=== PATIENT | female | born 1985 | race Caucasian/White ===

== ENCOUNTER 2019-02-13 05:05 | Inpatient (IN) ==
[2019-02-13] MEDS ORDERED: KEFZOL 1 GM/D5W 1 GM/50 ML IVPB IV PRN (05:07)
[2019-02-13] MEDS ORDERED: BICITRA PO ONE (05:14)
[2019-02-13] MEDS ORDERED: REGLAN IV ONE (05:14)
[2019-02-13 05:59] LABS: URINE SOURCE VOIDED
[2019-02-13] MEDS: LR 1,000 ML IV SCH ×2 (05:59→06:22)
[2019-02-13 06:04] LABS: BASO# 0.04 X1000 (0.0-0.2); BASO% 0.3 % (0.0-0.8); EOS# 0.16 X1000 (0.0-0.7); EOS% 1.2 % (0.0-10.0); HEMATOCRIT 34.7 % (37.0-47.0); HEMOGLOBIN 11.3 g/dL (12.0-16.0); IMM GRAN% 0.7 % (0.0-0.5); LYMPH# 2.74 X1000 (1.2-3.4); LYMPH% 19.9 % (20.5-51.1); MCH 28.8 PG (27-31); MCHC 32.6 g/dL (33-37); MCV 88.5 FL (81-99); MONO# 1.22 X1000 (0.11-0.59); MONO% 8.9 % (1.7-9.3); MPV 11.1 FL (7.4-10.4); NEUT# 9.48 X1000 (1.4-6.5); PLT 240 X1000 (130-400); RBC 3.92 XMIL (4.2-5.4); RDW 14.2 % (11.5-14.5); WBC 13.74 X1000 (4.8-10.8)
[2019-02-13 06:28] LABS: BILIRUBIN URINE NEGATIVE (NEGATIVE); BLOOD URINE NEGATIVE (NEGATIVE); CLARITY CLEAR (CLEAR); COLOR YELLOW; GLUCOSE URINE NEGATIVE (NEGATIVE); KETONE URINE NEGATIVE (NEGATIVE); LEUKOCYTES URINE NEGATIVE (NEGATIVE); NITRITE URINE NEGATIVE (NEGATIVE); PROTEIN URINE NEGATIVE (NEGATIVE); SP GRAVITY URINE 1.005; UROBILINOGEN URINE NORMAL
--- NOTE | 2019-02-13 06:28 | HISTORY AND PHYSICAL ---
HISTORY OF PRESENT ILLNESS: The patient is a 33-year-old, white female, G2, P1, at 39 weeks gestation, with a history of prior section, who would like to have an elective repeat section. She also has expressed a desire for permanent sterilization, and will have a tubal ligation at the time of the section. Gestational course was unremarkable. Dating was confirmed by a first-trimester ultrasound. PAST MEDICAL HISTORY: Significant for heart murmur and mitral valve prolapse, but has not been treated for several years. PAST SURGICAL HISTORY: section as well as dental surgery. PAST OBSTETRICS HISTORY: G2, P1. section x1. GYNECOLOGIC HISTORY: Menarche at the age of 13. REVIEW OF SYSTEMS: All systems were reviewed and noncontributory. FAMILY HISTORY: Significant for high blood pressure, stroke, diabetes. SOCIAL HISTORY: Tobacco use: She reports that she quit. Alcohol use: None. MEDICATIONS: vitamins, iron sulfate, Zantac, Zofran, Tylenol. ALLERGIES: Wellbutrin. PHYSICAL EXAMINATION: VITAL SIGNS: Height 5 feet 1 inch, weight 184 pounds. Blood pressure 113/66, pulse of 72, respirations 18, and heart rate in the 150s. HEENT: Pupils are equal, round, reactive to light and accommodation. Extraocular movements intact. Oropharynx clear. NECK: Supple. No thyromegaly. LUNGS: Clear to auscultation. HEART: Regular rate and rhythm. ABDOMEN: Gravid, nontender. EXTREMITIES: No clubbing, cyanosis, or edema noted. NEUROLOGIC: Cranial nerves II through XII are grossly intact. Motor 5/5. DTRs 2+ bilaterally. ASSESSMENT AND PLAN: Intrauterine at 39 weeks with a history of prior section, for elective repeat section, as well as for tubal ligation. The patient was counseled about the risks of surgery, including bleeding, infection, bowel or bladder injury. The patient was also counseled about the permanency of tubal ligation, failure rate of 2 to 07/999, as well as the availability of reversible alternatives, such as intrauterine device, control pills, patches, etc. The surgery is scheduled for 02/13/2019. cc: Bernard Cooney III, MD
[2019-02-13 06:34] LABS: UR AMPHETAMINES QUAL NONE DETECTED (NONE DETECT); UR BARBITUATES QUAL NONE DETECTED (NONE DETECT); UR BENZODIAZEPIN QUAL NONE DETECTED (NONE DETECT); UR CANNABINOIDS QUAL NONE DETECTED (NONE DETECT); UR COCAINE QUAL NONE DETECTED (NONE DETECT); UR METHADONE QUAL NONE DETECTED (NONE DETECT); UR METHAMPHETAMINE QUAL NONE DETECTED (NONE DETECT); UR OPIATES QUAL NONE DETECTED (NONE DETECT); UR OXYCODONE QUAL NONE DETECTED (NONE DETECT); UR PCP QUAL NONE DETECTED (NONE DETECT); UR PROPOXYPHENE QUAL NONE DETECTED (NONE DETECT); UR TCA QUAL NONE DETECTED (NONE DETECT)
[2019-02-13] MEDS ORDERED: PITOCIN 20 UNITS/NS 20 UNITS/1,000 ML IV.SOLN IV ONE (08:13)
[2019-02-13] MEDS ORDERED: BOOSTRIX VACCINE IM ONE (08:13)
[2019-02-13] MEDS ORDERED: PHENERGAN IM PRN (08:13)
[2019-02-13] MEDS ORDERED: AMBIEN PO PRN (08:13)
[2019-02-13] MEDS ORDERED: DEMEROL PO PRN ×2 (08:13)
[2019-02-13] MEDS ORDERED: HYDROXYZINE IM PRN (08:13)
[2019-02-13] MEDS ORDERED: DEMEROL IM PRN (08:13)
[2019-02-13] MEDS ORDERED: DULCOLAX PR PRN (08:13)
[2019-02-13] MEDS ORDERED: PITOCIN IM PRN (08:13)
[2019-02-13] MEDS ORDERED: NORCO-5 PO PRN (08:13)
[2019-02-13] MEDS ORDERED: M-M-R II VACCINE SUBQ ONE (08:13)
[2019-02-13] MEDS ORDERED: PITOCIN 10 UNITS/NS 1,000 ML IV SCH (08:15)
--- NOTE | 2019-02-13 08:40 | OPERATIVE NOTE ---
PROCEDURE DATE: 02/13/2019 PREOPERATIVE DIAGNOSIS: Intrauterine 39 weeks with history of for elective repeat . The patient also desires permanent sterilization. POSTOPERATIVE DIAGNOSIS: Intrauterine 39 weeks with history of for elective repeat . The patient also desires permanent sterilization with an operative delivery of a female , 6 pounds 6 ounces, Apgars of 9 and 10 at 0719 hours on 02/13/2019. PROCEDURE PERFORMED: Repeat low-transverse section and bilateral tubal ligation. SURGEON: Bernard Cooney III, MD. TERMINAL OPERATOR: ORT. ANESTHESIA: Spinal, Dr. Collier. FINDINGS: Normal-appearing uterus, tubes, and ovaries. COMPLICATIONS: None. ESTIMATED BLOOD LOSS: 600 mL. SPECIMENS: Right and left fallopian tube segments to pathology. DRAINS: Jarquin to straight drain. COUNTS: All counts were correct x3. INDICATIONS: Patient is a 33-year-old female, G 2, P 1 at 39 weeks gestation with a history of prior . The patient will be scheduled for elective repeat . She also desires permanent sterilization, and will have bilateral tubal ligation at time of . Patient counseled about the permanency of tubal ligation, as well as the failure rate of 2 to 4 per 1000, and the availability of reversible alternatives, such as IUD, control pills, patches, etc. The patient was also counseled about the risks of surgery including bleeding, infection, bowel or bladder injury. DESCRIPTION OF PROCEDURE: The patient was taken to OR, had spinal anesthesia placed, and the placed in the supine position with a roll under right hip. She was then prepped and draped in sterile fashion with placement of a Jarquin catheter, and adequate anesthesia was noted by using Allis clamps on skin. A Pfannenstiel skin incision was made in the lower abdomen using scalpel. This was taken down sharply to the fascial layer. The small tiny was made in the rectus fascia and then the fascial incision was extended bilaterally by curved Martins scissors. Then blunt and sharp dissection of the rectus fascia superiorly and inferiorly was performed. Rectus muscle was then divided in the midline. Peritoneal layer was entered bluntly. The peritoneal incision was extended superiorly and inferiorly with care taken to avoid the bladder. At this point in time, a bladder reflection was created using Metzenbaum scissors. A bladder blade was then placed into the abdominal cavity. A transverse incision was made on lower uterine segment using scalpel. Clear fluid was noted and then with gentle fundal pressure, the head was delivered atraumatically, bulb suctioned the nose and mouth. A nuchal cord was noted x1. This was reduced easily at the time of delivery. Also, a nuchal hand was noted. The rest the body was delivered atraumatically with gentle fundal pressure. Umbilical cord was clamped twice and cut. handed to nursery nurse in attendance for delivery. Cord blood sample was obtained at this time. Placenta was then manually extracted. Uterus was exteriorized. Wet lap was placed around the uterus; dry lap was then used to curette the uterine cavity of clots and debris. Uterine incision was then closed using 0 chromic in a running, locking fashion x1. A small area of oozing was noted on the left corner and this was made hemostatic with a [id number] stitch. Attention was then turned to the fallopian tubes. The right fallopian tube was grasped with a Weston clamp. A hole was made in the mesosalpinx using electrocautery, and then this was tied using 0 plain suture. The ligated dissection was then excised using Metzenbaum scissors, and then handed off to be placed in a specimen container. Electrocautery was then used to touch the open portions of the fallopian tube and good hemostasis was noted. Attention was then turned to the left fallopian tube which was grasped near the isthmus with a Sabi clamp, and then a hole was made in the mesosalpinx. Zero plain suture was used to tie this, ligate a section of this, and then this was then removed using Metzenbaum scissors and also handed off to be placed in a specimen container. Once again, electrocautery was placed on the open ends of the fallopian tube and good hemostasis was noted. The posterior cul-de-sac was then irrigated copiously. The uterus was then replaced back into the abdominal cavity. The pericolic gutters were cleansed using moist lap sponges. The bladder reflection was inspected, as well as the incision, and good hemostasis was noted. The peritoneal layer was then closed using 2-0 chromic in a running fashion x1, and then interrupted 2-0 chromic was then used to reapproximate the rectus muscle. Fascial layer was then closed using 0 PDS in a running fashion x1. Irrigation of the subcutaneous layer was then performed, and electrocautery was used to obtain hemostasis, and 2 interrupted stitches of 3-0 chromic were used in the subcutaneous layer. The skin was then reapproximated using wyatt. Patient tolerated the procedure well, was taken to recovery room in stable condition. All counts were correct x3. cc: Bernard Cooney III, MD
[2019-02-13] MEDS ORDERED: TORADOL IV SCH (09:00)
[2019-02-13] MEDS ORDERED: PERCOCET-5 PO ONE (09:49)
[2019-02-13] MEDS: MYLICON PO SCH ×4 (09:55→20:10)
[2019-02-13] MEDS ORDERED: NARCAN INJ PRN (10:00)
[2019-02-13] MEDS ORDERED: ZOFRAN IV PRN ×2 (10:00)
[2019-02-13] MEDS ORDERED: ZOFRAN ODT PO PRN (10:00)
[2019-02-13] MEDS: BENADRYL IV PRN ×2 (10:11→22:53)
[2019-02-13] MEDS: TORADOL IV SCH ×2 (14:24→20:10)
[2019-02-13] MEDS: PERICOLACE PO SCH (20:10)
[2019-02-13] MEDS ORDERED: PERICOLACE PO SCH (21:00)
[2019-02-14] MEDS: PERCOCET-5 PO PRN ×3 (01:21→12:01)
[2019-02-14] MEDS: MYLICON PO PRN ×2 (01:28→06:12)
[2019-02-14] MEDS: ATARAX PO PRN ×5 (01:28→21:52)
[2019-02-14] MEDS: TORADOL IV SCH (02:17)
[2019-02-14 06:29] LABS: BASO# 0.02 X1000 (0.0-0.2); BASO% 0.1 % (0.0-0.8); EOS# 0.37 X1000 (0.0-0.7); EOS% 2.8 % (0.0-10.0); HEMATOCRIT 29.8 % (37.0-47.0); HEMOGLOBIN 9.4 g/dL (12.0-16.0); IMM GRAN# 0.04 X1000 (0.0-0.04); IMM GRAN% 0.3 % (0.0-0.5); LYMPH# 2.03 X1000 (1.2-3.4); LYMPH% 15.2 % (20.5-51.1); MCH 28.6 PG (27-31); MCHC 31.5 g/dL (33-37); MCV 90.6 FL (81-99); MONO# 1.08 X1000 (0.11-0.59); MONO% 8.1 % (1.7-9.3); MPV 11.1 FL (7.4-10.4); NEUT% 73.5 % (42.2-75.2); PLT 217 X1000 (130-400); RBC 3.29 XMIL (4.2-5.4); RDW 14.2 % (11.5-14.5); WBC 13.34 X1000 (4.8-10.8)
--- NOTE | 2019-02-14 07:39 | OB/GYN PROGRESS NOTE ---
Progress Note OB - . OB Progress Note: Vital Signs - 24 hr 02/13/19 08:20 02/13/19 08:25 02/13/19 08:30 Temperature 96.7 F L Pulse Rate 90 93 H 72 Respiratory Rate 20 20 20 Blood Pressure Blood Pressure [Left Calf] 120/57 131/63 133/68 O2 Sat by Pulse Oximetry 98 98 98 02/13/19 08:35 02/13/19 08:40 02/13/19 08:50 Temperature Pulse Rate 88 80 75 Respiratory Rate 20 20 20 Blood Pressure Blood Pressure [Left Calf] 136/70 146/82 161/81 O2 Sat by Pulse Oximetry 97 98 98 02/13/19 09:00 02/13/19 09:07 02/13/19 09:10 Temperature 97.7 F Pulse Rate 73 86 79 Respiratory Rate 20 20 Blood Pressure 122/84 Blood Pressure [Left Calf] 161/77 155/75 O2 Sat by Pulse Oximetry 98 96 02/13/19 09:20 02/13/19 09:35 02/13/19 09:50 Temperature Pulse Rate 65 94 H 78 Respiratory Rate 20 20 20 Blood Pressure 159/73 177/95 162/83 Blood Pressure [Left Calf] 159/73 O2 Sat by Pulse Oximetry 96 97 95 02/13/19 10:05 02/13/19 10:20 02/13/19 10:30 Temperature 98.7 F Pulse Rate 99 H 89 Respiratory Rate 20 20 20 Blood Pressure 163/80 163/80 117/60 Blood Pressure [Left Calf] O2 Sat by Pulse Oximetry 97 97 97 02/13/19 11:20 02/13/19 15:20 02/13/19 20:06 Temperature 97.3 F L 98.0 F 96.6 F L Pulse Rate 81 83 86 Respiratory Rate 20 16 20 Blood Pressure 128/61 120/79 105/57 Blood Pressure [Left Calf] O2 Sat by Pulse Oximetry 97 98 96 02/14/19 04:52 Temperature 97.5 F L Pulse Rate 71 Respiratory Rate 18 Blood Pressure 110/67 Blood Pressure [Left Calf] O2 Sat by Pulse Oximetry Laboratory Results - last 24 hr 02/14/19 05:32 WBC 13.34 H RBC 3.29 L Hgb 9.4 L D Hct 29.8 L MCV 90.6 MCH 28.6 MCHC 31.5 L RDW Std Deviation 14.2 Plt Count 217 MPV 11.1 H Immature Gran % (Auto) 0.3 Neut % (Auto) 73.5 Lymph % (Auto) 15.2 L [place] % (Auto) 8.1 Eos % (Auto) 2.8 Baso % (Auto) 0.1 Immature Gran # (Auto) 0.04 Neut # (Auto) 9.80 H Lymph # (Auto) 2.03 [place] # (Auto) 1.08 H Eos # (Auto) 0.37 Baso # (Auto) 0.02 PO1 no cx pain mgmt s/nt dressing c/d -cce lochia nl hgb 9.4 adv diet snyder out ambulate possible home tomorrow
[2019-02-14] MEDS ORDERED: LR 1,000 ML IV SCH (08:13)
[2019-02-14] MEDS: MOTRIN PO PRN ×2 (09:28→17:31)
[2019-02-14] MEDS: MYLICON PO SCH ×5 (09:42→20:50)
[2019-02-14] MEDS ORDERED: NEOSPORIN OINTMENT PACKET TOP PRN (14:59)
[2019-02-14] MEDS: NORCO-10 PO PRN ×3 (15:09→21:51)
[2019-02-14] MEDS: PERICOLACE PO SCH (20:50)
[2019-02-15] MEDS: NORCO-10 PO PRN ×6 (00:51→21:10)
[2019-02-15] MEDS: MOTRIN PO PRN ×3 (00:52→18:43)
[2019-02-15] MEDS: ATARAX PO PRN ×6 (00:52→21:10)
[2019-02-15] MEDS: MYLICON PO SCH ×4 (08:41→21:09)
[2019-02-15] MEDS: FERROUS SULFATE PO SCH (08:44)
[2019-02-15] MEDS ORDERED: MIRALAX PO ONE (14:32)
[2019-02-15] MEDS ORDERED: FLEET ENEMA PR ONE (17:20)
[2019-02-15] MEDS: PERICOLACE PO SCH (21:10)
[2019-02-15] MEDS: MYLICON PO PRN (23:23)
[2019-02-15] MEDS: MIRALAX PO SCH (23:24)
[2019-02-16] MEDS: NORCO-10 PO PRN ×3 (00:43→08:50)
[2019-02-16] MEDS: MYLICON PO PRN (04:10)
[2019-02-16] MEDS: MOTRIN PO PRN (04:10)
[2019-02-16] MEDS: ATARAX PO PRN ×2 (05:32→08:50)
[2019-02-16] MEDS: MYLICON PO SCH (08:24)
[2019-02-16] MEDS: FERROUS SULFATE PO SCH (08:24)
[2019-02-16] MEDS: MIRALAX PO SCH (08:24)
[2019-02-16] MEDS ORDERED: FLU VACCINE IM ONE (08:30)
[2019-02-16] MEDS ORDERED: PNEUMOVAX 23 IM ONE (08:30)
[2019-02-16 10:01] VITALS: BP 129/79
--- NOTE | 2019-02-16 15:21 | DISCHARGE SUMMARY ---
ADMISSION DATE: 02/13/2019 DISCHARGE DATE: 02/16/2019 ADMISSION DIAGNOSIS: A 33-year-old white female, G2, P1, at 39 weeks gestation with history of prior for elective repeat . Also, patient desires permanent sterilization. FINAL DIAGNOSIS: Same as above with operative delivery of a female infant, 6 pounds 6 ounces with Apgars of 9 and 10 at 0719 on 02/13/2019. PROCEDURES: Repeat low transverse and bilateral tubal ligation. BRIEF HISTORY: The patient is a 33-year-old white female, G2, P1, at 39 weeks gestation with a history of prior and will plan a repeat . Patient also expressed desire for permanent sterilization and will have a tubal ligation performed at the time of . Gestational course was unremarkable. Dating was confirmed by first-trimester ultrasound. PAST MEDICAL HISTORY: Significant for heart murmur, mitral valve prolapse, but has not been treated for several years. PAST SURGICAL HISTORY: as well as dental surgery. PAST OB HISTORY: , x1. MANUFACTURING ENGINEERING MANAGER HISTORY: Menarche at age 13. REVIEW OF SYSTEMS: All systems were reviewed and noncontributory. FAMILY HISTORY: Significant for high blood pressure, stroke, and diabetes. SOCIAL HISTORY: Tobacco use, she reports that she quit. Alcohol use, none. MEDICATIONS: vitamins, iron sulfate, Zantac, Zofran, and Tylenol. ALLERGIES: Wellbutrin. PHYSICAL EXAMINATION: Vital Signs: Height 5 feet 1 inch. Weight 184 pounds. Blood pressure 113/66, pulse of 72, respirations 18, heart rate in the 150s with positive accelerations. HEENT: Pupils equal, round, reactive to light and accommodation. Extraocular movements intact. Oropharynx clear. Neck: Supple, no thyromegaly. Lungs: Clear to auscultation. Heart: Regular rate and rhythm. Abdomen: Gravid, nontender. Extremities: No clubbing, cyanosis, or edema noted. Neurologic: Cranial nerves 2 through 12 grossly intact. Motor 5/5. DTRs 2+ bilaterally. ASSESSMENT AND PLAN: IUP 39 weeks with history of for elective repeat as well as for tubal ligation. Patient counseled about the risks of surgery, including bleeding, infection, bowel or bladder injury. Patient also counseled about the permanency of tubal ligation, failure rate of 2 to 07/999, as well as the availability of reversible alternatives such as IUD, control pills, patches, injections, etc. HOSPITAL COURSE: The patient had a scheduled with operative delivery of a female infant, 6 pounds 6 ounces with Apgars of 9 and 10 at 0719 on 02/13/2019. The patient's postoperative course was unremarkable. Her hemoglobin had dropped to 9.4 from 11.3 and hematocrit was 29.8, and she was started on iron sulfate. She was advanced on her diet, became ambulatory, was afebrile with stable vital signs and on postop day #3, she had bowel activity as well. I felt that she could be discharged home at this time. DISCHARGE PLANS: The patient will be discharged home. She will follow up on 02/20/2019 for staple removal. She was given instructions on the lifting precautions for 6 weeks and instructed to call for temperature greater than 101, heavy vaginal bleeding, or severe abdominal pain. DISCHARGE MEDICATIONS: [place] 10 dispense 20 with no refills, iron sulfate 325 mg dispensed 30 with 1 refill, Colace 100 mg dispensed 30 with 1 refill, Motrin 800 mg dispensed 30 with 1 refill. Phenergan 25 mg tablets dispense 20 with 1 refill. cc: Bernard Cooney III, MD
== END 2019-02-16 10:40 | disposition home or self-care (01) | DRG 783 ==
LOC: P.LD 05:05
PROVIDERS: ADMIT Obstetrics & Gynecology; ATTEND Obstetrics & Gynecology